=== PATIENT | female | born 1965 | race Caucasian/White ===

== ENCOUNTER → 2020-06-05 | Outpatient (CLI) | payer BC ==
[~2020-06-05] MED LIST: Hair, Skin & N1 EACH PO
[2020-06-05 09:53] LABS: BASOPHILS ABSOLUTE AUTO 0.04 K/mm3 (0.00-0.23); BASOPHILS PERCENT AUTO 0 % (0-2); EOSINOPHILS ABSOLUTE AUTO 0.03 K/mm3 (0.00-0.68); EOSINOPHILS PERCENT AUTO 0 % (0-6); Hemoglobin 13.9 g/dL (11.5-16.0); IMMATURE GRAN ABSOLUTE AUTO 0.04 K/mm3 (0.00-0.10); IMMATURE GRAN PERCENT AUTO 0 % (0-1); LYMPHOCYTES ABSOLUTE AUTO 1.79 K/mm3 (0.84-5.20); LYMPHOCYTES PERCENT AUTO 16 % (21-46); MONOCYTES ABSOLUTE AUTO 0.96 K/mm3 (0.16-1.47); MONOCYTES PERCENT AUTO 8 % (4-13); Mean Corpuscular HGB 27.7 pg (26.0-34.0); Mean Corpuscular HGB Conc 33.1 g/dL (31.5-36.5); Mean Corpuscular Volume 84 fL (80-100); Mean Platelet Volume 10.2 fL (9.1-12.4); NEUTROPHILS ABSOLUTE AUTO 8.67 K/mm3 (1.96-9.15); NEUTROPHILS PERCENT AUTO 75 % (41-73); Platelet Count 261 K/mm3 (150-400); RDW Coefficient Variation 12.7 % (11.7-14.2); RDW Standard Deviation 38.5 fL (35.1-46.3); Red Blood Cell Count 5.01 M/mm3 (3.80-5.20); White Blood Cell Count 11.53 K/mm3 (4.00-11.30)
[2020-06-05 10:05] LABS: Anion Gap 9 mmol/L (6-16); Blood Urea Nitrogen 16 mg/dL (8-24); Bun/Creatinine Ratio 16.7 (12.0-20.0); CO2, Blood 27 mmol/L (21-32); Calcium, Blood 9.2 mg/dL (8.5-10.1); Chloride, Blood 97 mmol/L (98-108); Creatinine, Blood 0.96 mg/dL (0.40-1.00); Glomerular Filtration Rate >60 (60-); Glucose, Blood 105 mg/dL (70-99); Sodium, Blood 133 mmol/L (136-145)
[2020-06-05 10:06] LABS: Potassium, Blood 4.6 mmol/L (3.5-5.5)
== END ==
LOC: LAB SHORT 09:35 → LAB EV 09:35
PROVIDERS: Family Medicine
DX: R10.32 Left lower quadrant pain (principal)
CPT/HCPCS: 36415; 80048; 85025

== ENCOUNTER → 2023-07-06 | Outpatient (CLI) | payer BC | LOC: LAB SHORT 08:45 → PLD 08:45 | DX: D48.5 Neoplasm of uncertain behavior of skin (principal) | CPT/HCPCS: 88305 ==

== ENCOUNTER → 2024-01-05 | Outpatient (CLI) | payer BC ==
[2024-01-12 21:32] LABS: HPV HIGH RISK BY TMA Not Detected; HPV SOURCE Vaginal
== END ==
LOC: LAB 15:11 → LAB SHORT 15:11
PROVIDERS: Obstetrics & Gynecology
DX: Z01.419 Encounter for gynecological examination (general) (routine) without abnormal findings (principal)
CPT/HCPCS: 87624; G0123

== ENCOUNTER 2024-02-17 07:58 | Day surgery (SDC) | payer BC ==
[2024-03-19] MEDS ORDERED: LISI20 PO (12:31)
[2024-03-19] MEDS ORDERED: METF500 PO (12:31)
[2024-03-19] MEDS ORDERED: FINA5 PO (12:31)
[2024-03-19] MEDS ORDERED: OZEMPIC0.25 MG/02 SC (12:32)
== END 2024-02-17 23:59 | disposition home or self-care (01) ==
LOC: MOI US 07:58 → MOI MAM 08:45 → MOI US 08:45
DX: C50.412 Malignant neoplasm of upper-outer quadrant of left female breast (principal); Z17.0 Estrogen receptor positive status [ER+]
CPT/HCPCS: 19083; 77065; 88305; 88342; 88360; A4648; G0279

== ENCOUNTER 2024-03-23 07:58 | Day surgery (SDC) | payer BC ==
[2024-03-23] VITALS (17 sets, daily range): BP systolic 111–136; BP diastolic 55–78
[~2024-03-23] VITALS: Ht 157.5 cm; Wt 89.8 kg
[~2024-03-23 07:58] MED LIST changes: +CeFAZolin Sodium 2,000 MG in NS 100 ML IV SCH; +FINA5 PO; +LISI20 PO; +Lactated Ringer's 1,000 ML IV SCH; +METF500 PO; +OZEMPIC0.25 MG/02 SC
--- NOTE | 2024-03-23 08:43 | NUR ---
Ambulatory in Day Surgery History, Chart, Medications and Allergies reviewed before start of procedure. Pre-Op teaching done. Pt verbalizes understanding. Patient States Post-Procedure ride home has been arranged.
[2024-03-23] MEDS ORDERED: propofoL 20 ML IV ONE (09:57)
[2024-03-23] MEDS ORDERED: FentaNYL Citrate 50 MCG/ML 2 ML Injection ONE (09:57)
[2024-03-23] MEDS ORDERED: Bupivacaine 0.5% HCl 5 MG/ML 30MLVIAL ONE (10:06)
[2024-03-23] MEDS ORDERED: Methylene Blue 1% 100 MG/10 ML VIAL ONE (10:06)
[2024-03-23] MEDS ORDERED: ePHEDrine Sulfate 50 MG/ML 1ML Injection ONE (10:52)
[2024-03-23] MEDS ORDERED: HYDROmorphone HCl/Pf 1MG SYR ONE (11:28)
[2024-03-23] MEDS ORDERED: Ondansetron HCl 2 MG / ML 2ML Vial ONE (11:58)
[2024-03-23] MEDS ORDERED: Ketorolac Tromethamine 30mg Vial ONE (11:59)
[2024-03-23] MEDS ORDERED: Ipratropium/Albuterol SulF 2.5-0.5MG/3 ML Amp INH ONE (12:30)
[2024-03-23] MEDS ORDERED: HYDROcodone 5-APAP 325 TAB PO PRN (12:50)
--- NOTE | 2024-03-23 14:52 | NUR ---
1320: Report received from Denae CHUN. VSS. Pt on RA. Pt able to reposition self in bed. Pt sitting up bijal PO food and fluids. Pt spouse at bedside. Pt has one incision site dressed with exofen to left breast that is C/D/I. Pt also has breast binder in place. 1330: Discharge instructions reviewed with patient and her spouse. Patient verbalizes understanding. Copy given to patient to take home. Pt up to ambulate and get dressed. After getting dressed, pt report feeling dizzy and wanting to rest for a few more minutes. Her spouse was agreeable to this plan. 1350: Pt still report feeling dizzy. Pt denied feeling nauseous. Pt report soreness to her incision site that was tolerable. 1400: Pt desats when resting to low 80s to low 90s. Pt spouse informs that she likely has sleep apnea and this is her baseline while at rest. Pt placed on 2L supplemental O2 via NC while she rested. 1415: Pt reports she would like to try to get up and move around. Pt removed from supplemental O2 and reports feeling better. Pt remains feeling sleepy and dizzy, but verbalized readiness to go home. VSS and consistent with pt baseline. Dressing to procedure site remains C/D/I. Discharged via wheelchair to private car for ride home. Pt belongings returned to pt.
== END 2024-03-23 14:20 | disposition home or self-care (01) ==
LOC: ORSCMMR 07:58 → NM 07:58
PROVIDERS: Surgery
PROC: 0HBU0ZZ Excision of Left Breast, Open Approach (ICD-10-PCS; principal; 2024-03-23 09:30)
PROC: 07B60ZX Excision of Left Axillary Lymphatic, Open Approach, Diagnostic (ICD-10-PCS; principal; 2024-03-23 09:30)
DX: C50.412 Malignant neoplasm of upper-outer quadrant of left female breast (principal); Z17.0 Estrogen receptor positive status [ER+]; E78.5 Hyperlipidemia, unspecified; E78.00 Pure hypercholesterolemia, unspecified; R73.9 Hyperglycemia, unspecified; J45.909 Unspecified asthma, uncomplicated; Z68.36 Body mass index [BMI] 36.0-36.9, adult; Z79.84 Long term (current) use of oral hypoglycemic drugs; Z79.85 Long-term (current) use of injectable non-insulin antidiabetic drugs; Z79.899 Other long term (current) drug therapy
CPT/HCPCS: 38792; 76098; 82947; 88307; 94640; 94664; A9270; A9520; J0690; J1170; J1885; J2405; J2704; J3010; J7120; Q9968